=== PATIENT | male | born 1990 | race African-American/Black ===

== ENCOUNTER 2018-01-23 00:41 | Emergency (ER) | payer BC ==
[2018-01-23] MEDS ORDERED: HYDROcodone/Acetaminophen 10/325 mg Tablet ONE (01:30)
--- NOTE | 2018-01-23 08:33 | RAD ---
LEFT SHOULDER 3 VIEWS: Date: 01/23/18 PROVIDED CLINICAL HISTORY: Left shoulder pain status post injury. FINDINGS: There is no evidence for fracture or other acute osseous abnormality. If there is persistent clinical concern, conservative management and follow-up imaging advised. IMPRESSION: As above. POS: JO-ANN
--- NOTE | 2018-01-23 08:34 | RAD ---
LEFT CLAVICLE 2 VIEWS: Date: 01/23/18 PROVIDED CLINICAL HISTORY: Left shoulder pain status post injury. FINDINGS: There is no evidence for fracture or other acute osseous abnormality. If there is persistent clinical concern, conservative management and follow-up imaging advised. IMPRESSION: As above. POS: JO-ANN
== END 2018-01-23 01:52 | disposition home or self-care (01) ==
LOC: ERS 00:41
DX: S40.012A Contusion of left shoulder, initial encounter (principal); V86.99XA Unspecified occupant of other special all-terrain or other off-road motor vehicle injured in nontraffic accident, initial encounter